=== PATIENT | male | born 1945 | race Caucasian/White ===

== ENCOUNTER 2023-06-03 05:57 | Inpatient (IN) ==
--- NOTE | 2023-05-21 11:10 | Anesthesiology Consultation ---
Date of Service May 21, 2023 Assessment & Plan (1) Encounter for pre-operative examination: - Check BSG AM DOS - Infectious disease screening: Per assessment on 05/21/23: No known infectious disease contacts or current infectious disease symptoms. No noted recent Covid positive test result. Chart Review Chart Review: Acceptable Risk for Surgery and Patient NOT seen in Pre Admission Testing History Surgery Operation Date: 06/03/23 12:45 Proposed Procedures p Left Sacroiliac Joint Fusion - Ochoa Alex DO Height/Weight Height: 5 ft 8 in Weight: 93.894 kg Allergies Allergy/AdvReac Type Severity Reaction Status Date / Time No Known Allergies Allergy Verified 05/21/23 10:36 Medications Home Medications Medication Instructions Recorded Confirmed Last Taken acetaminophen 325 mg tablet 325 mg PO QID PRN Pain 05/21/23 05/21/23 Unknown (Tylenol) cholecalciferol (vitamin D3) 25 25 mcg PO BID 05/21/23 05/21/23 Unknown mcg (1,000 unit) capsule (Vitamin D3) gabapentin 300 mg tablet,extended 300 mg PO QAM 05/21/23 05/21/23 Unknown release 24 hr glipizide 5 mg tablet 5 mg PO QPM 05/21/23 05/21/23 Unknown lisinopril 20 mg tablet 20 mg PO QAM 05/21/23 05/21/23 Unknown metformin 1,000 mg tablet 1,000 mg PO BID 05/21/23 05/21/23 Unknown metoprolol tartrate 25 mg tablet 25 mg PO QPM 05/21/23 05/21/23 Unknown pravastatin 20 mg tablet 20 mg PO QAM 05/21/23 05/21/23 Unknown tamsulosin 0.4 mg capsule (Flomax) 0.4 mg PO HS 05/21/23 05/21/23 Unknown Past Medical History Medical History DM type 2 (diabetes mellitus, type 2) History of degenerative disc disease History of gout History of kidney stones HLD (hyperlipidemia) HTN (hypertension) Osteoarthritis Past Surgical History Surgical History H/O arthroscopy of left knee History of biopsy prostate - benign History of cataract surgery History of colonoscopy History of cystoscopy History of esophagogastroduodenoscopy (EGD) Social History Smoking Status: Former smoker Do You Dip or Chew Tobacco: No Smoking End Date: 35 yeas ago Hx Alcohol Use: Yes Alcohol type: beer alcohol intake frequency: holidays/special occasions only Hx Substance Use: No substance use type: does not use Lab Results Anesthesia Preop Results Results Anesthesia Widget: WBC 8.33 K/ul (4.8-10.8) 05/20/23 Hgb 15.1 g/dl (12.0-16.0) 05/20/23 Hct 44.9 % (37.0-47.0) 05/20/23 Plt 192 K/uL (130-400) 05/20/23 Na 138 mmol/L (136-145) 05/20/23 K 4.3 mmol/L (3.5-5.1) 05/20/23 Cl 105 mmol/L (98-107) 05/20/23 CO2 25 mmol/L (21-32) 05/20/23 BUN 14 mg/dl (6-23) 05/20/23 Creat 1.09 mg/dl (0.6-1.2) 05/20/23 Glucose Level 125 mg/dl (70-99(Fasting)) H 05/20/23 PT 10.7 Seconds (9.0-12.0) 05/20/23 PTT 27 Seconds (21-31) 05/20/23 INR 1.0 (0.9-1.1) 05/20/23 Urine Color Yellow 05/20/23 Urine Appearance Clear (Clear) 05/20/23 Urine pH 5.5 (4.5-7.5) 05/20/23 Urine Specific [place] 1.007 (1.000-1.030) 05/20/23 Urine Protein Negative (Negative) 05/20/23 Urine Glucose (UA) Negative (Negative) 05/20/23 Urine Ketones Negative (Negative) 05/20/23 Urine Blood Negative (Negative) 05/20/23 Urine Nitrite Negative (Negative) 05/20/23 Urine Bilirubin Negative (Negative) 05/20/23 Urine Urobilinogen Negative (Negative) 05/20/23 Urine Leukocyte Esterase Negative (Negative) 05/20/23 Blood Type A Negative 05/20/23 Antibody Screen NEGATIVE 05/20/23 Testing Electrocardiogram Date: 05/20/23 Findings: + NSR @ (73) Chest X-Ray Date: 05/20/23 FINDINGS: PA and lateral chest radiographs are obtained. No prior studies are available for comparison at the time of dictation. The heart is top normal for projection noting atherosclerotic calcification of the thoracic aorta. There is mild bibasilar scarring/atelectasis The lungs and pleural spaces are otherwise clear. There is no pneumothorax. The skeletal structures are osteopenic. The bony thorax appears intact. Degenerative change is noted in the spine. IMPRESSION: No active disease in the chest.
[2023-06-03] MEDS: LR 15ML/HR IV SCH (06:40)
[2023-06-03] MEDS: ACETAMINOPHEN 500 MG TAB PO SCH (06:40)
[2023-06-03] MEDS: LR 60ML/HR IV SCH (06:40)
[2023-06-03] MEDS: CeleBREX 200 MG CAP PO SCH (06:41)
[2023-06-03] MEDS: GABAPENTIN 300 MG CAP PO SCH (06:41)
[2023-06-03] MEDS ORDERED: GLYCOPYRROLATE 0.2 MG/ML VIAL ONE (06:50)
[2023-06-03] MEDS ORDERED: ROCURONIUM BROMIDE 10 MG/ML 5 ML VIAL IV ONE (06:50)
[2023-06-03] MEDS ORDERED: PROPOFOL IV EMULSION 10 MG/ML 20 ML VIAL IV ONE (06:50)
[2023-06-03] MEDS ORDERED: ONDANSETRON INJ 2 MG/ML 2 ML VIAL ONE (06:50)
[2023-06-03] MEDS ORDERED: MIDAZOLAM HCL 1 MG/ML 2ML VIAL ONE (06:50)
[2023-06-03] MEDS ORDERED: DEXAMETHASONE SOD INJ 4 MG/ML VIAL ONE (06:50)
[2023-06-03] MEDS ORDERED: LIDOCAINE 2% 2 ML VIAL/AMP(20MG/ML) INFIL ONE (06:50)
[2023-06-03] MEDS ORDERED: fentaNYL citrate PF 100 MCG/2 ML VIAL ONE (06:51)
[2023-06-03] MEDS ORDERED: SUGAMMADEX SODIUM 200 MG/2 ML VIAL IV ONE (06:54)
[2023-06-03] MEDS ORDERED: ONDANSETRON INJ 2 MG/ML 2 ML VIAL IV PRN (07:10)
[2023-06-03] MEDS ORDERED: ePHEDrine sulfate 50 MG/ML AMP IV PRN (07:10)
[2023-06-03] MEDS ORDERED: PROMETHAZINE HCL 6.25 MG in SODIUM CHLORIDE 0.9% 50 ML IV PRN (07:10)
[2023-06-03] MEDS ORDERED: fentaNYL citrate PF 100 MCG/2 ML VIAL IV PRN (07:10)
[2023-06-03] MEDS ORDERED: ATROPINE SULFATE 0.1 MG/ML 10ML SYR IV PRN (07:10)
[2023-06-03] MEDS ORDERED: HYDROmorphone INJ 1 MG/ML SYRINGE IV PRN (07:10)
--- NOTE | 2023-06-03 07:42 | History & Physical Bridge Note ---
Date of Service June 03, 2023 History & Physical Bridge Note I have examined the patient, reviewed the History & Physical and in the interval since the performance of the History & Physical I have noted the following changes of clinical significance: no changes noted
--- NOTE | 2023-06-03 07:44 | History & Physical Report ---
Date of Service June 03, 2023 Assessment & Plan (1) Sacroiliitis: Plan: Left sacroiliac joint fusion History of Present Illness Chief Complaint: Left sacroiliitis Primary Care Provider: Avni Garcia PA-C This is a 69-year-old male presents for chronic persistent sacroiliitis after failing since course of nonoperative care is here for surgical invention. Allergies Allergy/AdvReac Type Severity Reaction Status Date / Time No Known Allergies Allergy Verified 06/03/23 06:27 Home Medications Medication Instructions Recorded Confirmed Type acetaminophen 325 mg tablet 325 mg PO QID PRN Pain 05/21/23 06/03/23 History (Tylenol) cholecalciferol (vitamin D3) 25 25 mcg PO BID 05/21/23 06/03/23 History mcg (1,000 unit) capsule (Vitamin D3) gabapentin 300 mg tablet,extended 300 mg PO QAM 05/21/23 06/03/23 History release 24 hr glipizide 5 mg tablet 5 mg PO QPM 05/21/23 06/03/23 History lisinopril 20 mg tablet 20 mg PO QAM 05/21/23 06/03/23 History metformin 1,000 mg tablet 1,000 mg PO BID 05/21/23 06/03/23 History metoprolol tartrate 25 mg tablet 25 mg PO QPM 05/21/23 06/03/23 History pravastatin 20 mg tablet 20 mg PO QAM 05/21/23 06/03/23 History tamsulosin 0.4 mg capsule (Flomax) 0.4 mg PO HS 05/21/23 06/03/23 History Past Med/Surg History Medical History DM type 2 (diabetes mellitus, type 2) History of degenerative disc disease History of gout History of kidney stones HLD (hyperlipidemia) HTN (hypertension) Osteoarthritis Surgical History H/O arthroscopy of left knee History of biopsy prostate - benign History of cataract surgery History of colonoscopy History of cystoscopy History of esophagogastroduodenoscopy (EGD) Social History Smoking Status: Former smoker Smoking End Date: 35 yeas ago; Second Hand Exposure: No; Do You Dip or Chew Tobacco: No; Tobacco Cessation Education Requested by Patient: No Hx Alcohol Use: Yes Alcohol type: beer Hx Substance Use: No Preferred Language: Nepali Communication Ability: Effective Compliance Administrator Required: No Beliefs That Will Affect Care: None Current Living Situation: Spouse Feels Safe at Home: Yes Safety Concerns: Feels Safe At This Time Assistive Devices: Denture - Upper, Denture - Lower and Glasses Physical Exam Physical Exam: Patient is alert and oriented Heart regular rhythm Lungs clear Results & Data Results & Data Vital Signs (Past 12 Hours) Vital Signs Temp Pulse Resp BP Pulse Ox O2 Del Method 06/03/23 06:30 36.6 C 77 20 167/86 H 95 Room Air
[2023-06-03] MEDS: ceFAZolin 2000MG 2,000 MG/15 ML SYR IV SCH (07:54)
[2023-06-03] MEDS ORDERED: ePHEDrine sulfate 50 MG/5 ML SYR ONE (08:35)
[2023-06-03] MEDS ORDERED: PHENYLEPHRINE 100MCG/ML 10ML SYR IV ONE (08:35)
[2023-06-03] MEDS ORDERED: oxyCODONE HCL IR 5 MG TAB (IMMEDIATE RELEASE) PO PRN ×2 (08:47)
[2023-06-03] MEDS ORDERED: HYDROmorphone INJ 0.5 MG/0.5 ML SYR IV PRN ×2 (08:47)
[2023-06-03] MEDS ORDERED: traMADol HCL 50 MG TABLET PO PRN ×2 (08:47)
--- NOTE | 2023-06-03 08:47 | Operative Report ---
Post Operative Report Pre & Post Diagnosis Operation Date: 06/03/23 07:45 Pre-Op Diagnosis: Sacroiliitis Post-Op Diagnosis: Sacroiliitis I identified the patient and participated in the time-out.: Yes Procedure Operation Date: 06/03/23 07:45 Actual Procedures #1 open left SI joint fusion. #2 placement of Nevro 1 transfixing implant filled with I factor in the left SI joint. Surgeon Ochoa Alex, Packager [employer] Strapper Ale Hylton Estimated Blood Loss 10 Findings Consistent with Post-Op Diagnosis Specimens None Indications This is a 77-year-old male presents problems diagnosis of failed course of nonoperative care and having successful injections is here for surgical stabilization of the left SI joint Description of Procedure Patient was met with identified informed consent obtained. Patient was then taken to the operative suite underwent patient placed in a prone position on the Julian table chest padded bolsters. All bony prominences well-padded eyes inspected to ensure no external pressure spinal. This point the left upper buttock was prepped and draped in a sterile fashion. I then created a 3 cm incision directly over the posterior aspect of the left SI joint. I exposed down to the posterior capsule. I then placed a joint finder within the left SI joint verifying position and oblique and lateral planes. I then placed a second dilator over the joint finder followed by a working cannula. I then drilled out and curetted out the left SI joint to subcortical bleeding bone. I then placed a 9 mm Nevro 1 implant filled with I factor into the joint void the transfixing device into the ileum and the sacrum. The working channel was removed incision copiously irrigated and closed with subcutaneous Vicryl and 4 Monocryl for final closure. Steri-Strip sterile dressing placed. Patient awakened taken to PACU in stable condition. Please note Ale Hylton was present at the entire procedure and all the patient positioning complex portion of the surgery and final skin closure. I attest to the content of the Intraoperative Record and any orders documented therein. Any exceptions are noted below.
[2023-06-03] MEDS: BUPIVACAINE/EPINEPHRINE 0.5% MPF 1:200,000 30 ML VIAL ONE (08:48)
--- NOTE | 2023-06-03 08:51 | Fluoroscopy Report ---
FL sacrum CLINICAL HISTORY: LEFT SI JOINTleft SI joint fusion COMPARISON STUDY: None FLUOROSCOPY TIME: 65.2 seconds FLUOROSCOPY IMAGES: 2 EXPOSURE DOSE: 75.72 mGy FINDINGS: A metallic fusion device overlies the left SI joint. On the lateral image, there is a surgi latosha sponge noted anteriorly and inferiorly to the device. Note that the images were submitted followi ng completion of the surgery. IMPRESSION: Fluoroscopic assistance as above. ACT 112: Negative or not required by law. Electronically signed by: Art Adams M.D. 06/03/2023 8:49 AM
[2023-06-03] MEDS: ceFAZolin 330 MG/ML 1 GM VIAL ONE (09:05)
[2023-06-03] MEDS: FLOSEAL HEMOSTATIC MATRIX 10ML TOP ONE (09:06)
[2023-06-03] MEDS ORDERED: ACETAMINOPHEN 325 MG TAB PO PRN (10:15)
--- NOTE | 2023-06-03 15:59 | Anesthesiology Progress Note ---
Date of Service June 03, 2023 Anesthesia Post Procedure Vital Signs Vital Signs: Temp Pulse Pulse Resp BP Pulse Ox O2 Del Method 06/03/23 11:55 36.5 C 71 16 165/85 H 91 Room Air 06/03/23 11:04 36.4 C L 77 65 16 152/82 H 96 06/03/23 10:55 36.4 C L 65 16 152/82 H 96 Room Air 06/03/23 10:29 36.3 C L 73 17 148/67 H 98 Room Air 06/03/23 09:55 36.4 C L 73 16 132/75 94 Room Air 06/03/23 09:35 77 21 128/66 92 Room Air 06/03/23 09:20 36.5 C 80 14 118/62 92 Room Air 06/03/23 09:10 85 19 115/66 92 Room Air 06/03/23 09:00 85 14 129/66 97 Oxymask 06/03/23 08:52 36.7 C 94 H 14 137/74 96 Oxymask 06/03/23 06:30 36.6 C 77 20 167/86 H 95 Room Air O2 Flow Rate 06/03/23 11:55 06/03/23 11:04 06/03/23 10:55 06/03/23 10:29 06/03/23 09:55 06/03/23 09:35 06/03/23 09:20 06/03/23 09:10 06/03/23 09:00 4 06/03/23 08:52 6 06/03/23 06:30 Pain Intensity Back: Pain Intensity: 7 Transfer of Care Handoff Completed per policy Notes Mental Status: alert / awake / arousable and participated in evaluation Patient Amnestic to Procedure: Yes Nausea / Vomiting: adequately controlled Pain: adequately controlled Airway Patency, RR, SpO2: stable & adequate BP & HR: stable & adequate Hydration State: stable & adequate Anesthetic Complications: no major complications apparent and Pt Satisfied with anesthetic care
[2023-06-03] MEDS ORDERED: TAMSULOSIN HCL 0.4 MG CAP PO SCH (21:00)
[2023-06-03] MEDS ORDERED: glipiZIDE 5 MG TAB PO SCH (21:00)
[2023-06-03] MEDS ORDERED: CHOLECALCIFEROL 25 MCG (1000 UNITS) TAB PO SCH (21:00)
[2023-06-03] MEDS ORDERED: METOPROLOL TARTRATE 25 MG TAB PO SCH (21:00)
[2023-06-03] MEDS ORDERED: metFORMIN HCL 500 MG TAB PO SCH (21:00)
[2023-06-04] MEDS ORDERED: GABAPENTIN 300 MG CAP PO SCH (09:00)
[2023-06-04] MEDS ORDERED: lisinopril 20 MG TAB PO SCH (09:00)
[2023-06-04] MEDS ORDERED: PRAVASTATIN SOD 20 MG TAB PO SCH (09:00)
--- NOTE | 2023-06-08 09:50 | Discharge Summary ---
Date of Service June 08, 2023 Admission HPI Per Admitting Provider This is a 69-year-old male presents for chronic persistent sacroiliitis after failing since course of nonoperative care is here for surgical invention. Admission Exam (Per Admitting) Constitutional WD/WN, vitals as above Eyes normal visual bauman by confrontation ENMT external ear and nose normal, oropharynx normal Neck normal visual inspection Respiratory normal respiratory effort, lungs clear to auscultation Cardiovascular Extremities: normal capillary refill Gastrointestinal (Abdomen) Inspection/Auscultation: abdomen normal to inspection Musculoskeletal Spine: + sciatic notch tenderness and + sacroiliac joint abnormality Extremities: extremities normal to inspection and strength 5/5 throughout Skin no rashes, warm and dry Neurologic normal touch/pain/proprioception and moves all extremities Psychiatric A+Ox3, euthymic affect Eye Contact: good eye contact Discharge Data Procedures Performed Operation Date: 06/03/23 07:45 Actual Procedures p Left Sacroiliac Joint Fusion(Left) - Ochoa Alex DO Hospital Course (1) Sacroiliitis: Arie is a 77-year-old gentleman who presented for sacroiliac joint fusion with Dr. Alex. Due to insurance purposes he was admitted. He was discharged home the same day. He had an uncomplicated intraoperative and postoperative course until discharge. Discharge Instructions ACTIVITY RECOMMENDATIONS: SELF CARE INSTRUCTIONS AFTER A LAMINECTOMY 1. No prolonged sitting (less than 30 minutes for the first 3 weeks after surgery). 2. No bending, lifting more than 5 pounds, or twisting (roll like a log when turning in bed). 3. You may shower 3 days after surgery if no drainage from wound. Thoroughly dry wound. Do not soak in the tub. 4. Please walk as much as you can for exercise. Gradually increase the distance that you walk as your endurance increases. 5. You may drive in 7-10 days if you are comfortable and no longer requiring pain medications. SPECIAL CARE INSTRUCTIONS: VERY IMPORTANT TO READ AND REVIEW A. Your surgical incision has been closed with a cosmetic suture under the skin that will dissolve in about 6 weeks. In 14 days, you can use a pair of clean scissors and cut the suture that is left outside of the skin at the ends of your incision. B. Complications are uncommon, but please contact us if you have any signs or symptoms of: 1. wound infection (fever higher than 102.5 degrees F, redness, separation of wound, drainage, or increasing pain from the incision) 2. blood clots in legs (pain, swelling, redness and warmth in legs) 3. urinary tract infection (fever higher than 102.5 degrees, burning upon urination or increased frequency of urination) 4. nerve problems (inability to walk on your toes or heels, numbness, loss of bowel or bladder control) 5. any other symptoms that concern you. C. Please call the office at if you have any concerns or questions about your operation or recovery. MANAGING PAIN AFTER SPINAL SURGERY 1. Narcotic medication is intended for short-term use and will be provided for surgical pain. Surgical pain usually lasts for a period of 4-6 weeks. Narcotic medication includes Percocet, Vicodin, Darvocet, Tylenol #3 or Lortab. 2. Longer-term pain is more appropriately treated with non-narcotic medication such as Tylenol ES. 3. Muscle spasm is not appropriately treated with narcotics. Muscle relaxers such as Soma, Flexeril or Skelaxin can be used along with Tylenol ES. 4. Remember that we all live with some "aches and pains". This is not unusual or uncommon after an injury or as we get older. 5. We will provide appropriate medication within the normal guidelines of their prescribed use. We will also be very cautious and aware of potential abuse and extended duration of patients' medication needs. 6. Please allow 2-3 days to process refills. Prescriptions will not be mailed but must be picked up at the office. FOLLOW UP VISIT: Keep your scheduled follow-up appointment. Any questions, please call the office at .
== END 2023-06-03 14:08 | disposition home or self-care (01) | DRG 460 ==
LOC: ASU 05:57 → EDSEX 05:57 → 3E 09:39
DX: M46.1 Sacroiliitis, not elsewhere classified; I10 Essential (primary) hypertension; Z79.84 Long term (current) use of oral hypoglycemic drugs; Z87.891 Personal history of nicotine dependence; Z79.899 Other long term (current) drug therapy; E11.9 Type 2 diabetes mellitus without complications; E78.5 Hyperlipidemia, unspecified